=== PATIENT | female | born 1950 | race Hispanic/Latino ===

== ENCOUNTER 2017-05-06 07:17 | Emergency (ER) | payer OTHER ==
[2017-05-06 07:42] VITALS: RESP 18; TEMP 99; O2SAT 99; BMI 25.7
--- NOTE | 2017-05-06 07:50 | ED PDOC ---
Arrival/HPI - General Chief Complaint: Upper Extremity Problem/Injury Time Seen by Provider: 05/06/17 07:41 Historian: Patient - History of Present Illness Narrative History of Present Illness (Text): 05/06/17 07:46 Delores Washington is a 66 year old female, with no significant past medical history, who presents to the emergency department complaining of left wrist pain s/p fall. Patient was walking, slipped, and put her left arm out to catch herself. Patient denies any symptoms before the fall. Patient denies any fever, LOC, dizziness, headache, chest pain, back pain, neck pain, abdominal pain, vomiting or any other complaints. Time/Duration: Prior to Arrival Symptom Onset: Sudden Activities at Onset: Light Context: Walking Past Medical History - Provider Review Nursing Documentation Reviewed: Yes - Infectious Disease Hx of Infectious Diseases: None - Reproductive Menopause: Yes - Cardiac Hx Pacemaker: No - Neurological Hx Paralysis: No - Hematological/Oncological Hx Blood Transfusions: No Hx Blood Transfusion Reaction: No - Integumentary Other/Comment: breast ca - Musculoskeletal/Rheumatological Hx Musculoskeletal Disorders: No - Psychiatric Hx Emotional Abuse: No Hx Physical Abuse: No Hx Substance Use: No - Surgical History Other/Comment: rt breast lumpectomy - Anesthesia Hx Anesthesia Reactions: No Hx Malignant Hyperthermia: No - Suicidal Assessment Feels Threatened In Home Enviroment: No Family/Social History - Physician Review Nursing Documentation Reviewed: Yes Family/Social History: Unknown Family HX Smoking Status: Unknown If Ever Smoked Hx Alcohol Use: No Hx Substance Use: No Allergies/Home Meds Allergies/Adverse Reactions: Allergies No Known Allergies Allergy (Verified 10/11/13 08:22) Home Medications: Home Meds Medication Instructions Recorded Confirmed Exemestane [Aromasin] 25 mg PO QPM 07/25/14 07/26/14 Multivitamin4 [One-A-Day] 1 tab PO DAILY 07/26/14 07/26/14 Review of Systems - Physician Review All systems were reviewed & negative as marked: Yes - Review of Systems Constitutional: Normal Eyes: Normal ENT: Normal Respiratory: Normal. absent: SOB, Cough Cardiovascular: Normal. absent: Chest Pain Gastrointestinal: Normal. absent: Abdominal Pain, Diarrhea, Nausea, Vomiting Genitourinary Female: Normal. absent: Dysuria, Frequency, Hematuria, Urine Output Changes Musculoskeletal: Other (Left wrist pain). absent: Back Pain, Neck Pain Skin: Normal. absent: Rash Neurological: Normal. absent: Headache, Dizziness Endocrine: Normal Hemo/Lymphatic: Normal Psychiatric: Normal Physical Exam Vital Signs Reviewed: Yes Vital Signs Temp Pulse Resp BP Pulse Ox 05/06/17 10:00 88 18 150/90 99 05/06/17 07:35 99 F 98 H 18 113/71 99 Temperature: Afebrile Blood Pressure: Normal Pulse: Regular Respiratory Rate: Normal Appearance: Positive for: Well-Appearing, Non-Toxic, Comfortable Pain Distress: None Mental Status: Positive for: Alert and Oriented X 3 - Systems Exam Head: Present: Atraumatic, Normocephalic Pupils: Present: PERRL Extroacular Muscles: Present: EOMI Conjunctiva: Present: Normal Mouth: Present: Moist Mucous Membranes Neck: Present: Normal Range of Motion. No: Meningeal Signs, MIDLINE TENDERNESS , JVD Respiratory/Chest: Present: Clear to Auscultation, Good Air Exchange. No: Respiratory Distress, Accessory Muscle Use Cardiovascular: Present: Regular Rate and Rhythm, Normal S1, S2. No: Murmurs Abdomen: Present: Normal Bowel Sounds. No: Tenderness, Distention, Peritoneal Signs Back: Present: Normal Inspection. No: CVA Tenderness, Midline Tenderness, Paraspinal Tenderness Upper Extremity: Present: Normal Inspection (mild tenderness interior aspect of left wrist), Tenderness. No: Cyanosis, Edema Lower Extremity: Present: Normal Inspection. No: Edema, CALF TENDERNESS, NORMAL PULSES Neurological: Present: GCS=15, CN II-XII Intact, Speech Normal Skin: Present: Warm, Dry, Normal Color. No: Rashes Psychiatric: Present: Alert, Oriented x 3, Normal Insight, Normal Concentration Medical Decision Making ED Course and Treatment: 05/06/17 07:54 Impression: 66 year old female presents to the ED complaining of left wrist pain s/p fall. Plan: -- Xray Lt. wrist -- Motrin -- Reassess and disposition Progress Notes: 05/06/17 09:24 Xray left wrist reviewed, shows: BONES: There is a impacted fracture of the distal left radius at the level of the distal metaphysis with dorsal angulation of the major distal fracture fragment compatible with a Colles fracture. JOINTS: No subluxation or dislocation degenerative changes seen of the carpometacarpal articulations as well as the radiocarpal joints. Limited local soft tissue edema is identified. SOFT TISSUES: As above. OTHER FINDINGS: None. IMPRESSION: Colles fracture distal left radius. No dislocation. - RAD Interpretation Radiology Orders: 05/06/17 07:42 WRIST, LEFT 3 VIEWS [RAD] Stat - Medication Orders Current Medication Orders: Discontinued Medications Ibuprofen (Motrin Tab) 600 mg PO STAT STA Stop: 05/06/17 07:43 Last Admin: 05/06/17 08:17 Dose: 600 mg [facility] Pain/Vitals Document 05/06/17 08:17 SZA (Rec: 05/06/17 08:17 [id number]) Pain Reassessment Is This A Pain ReAssessment? No Sleep Is patient sleeping during reassessment? No Presence of Pain Presence of Pain Yes Pain Scale Used Pain Scale Used Numeric Location Description Intermittent Intensity 7 Scale Used Numeric Re-Assess: [facility] Pain/Vitals Document 05/06/17 09:17 SZA (Rec: 05/06/17 10:36 [id number]) Pain Reassessment Is This A Pain ReAssessment? Yes Sleep Is patient sleeping during reassessment? No Presence of Pain Presence of Pain Yes Location Intensity 2 Scale Used Numeric - Scribe Statement The provider has reviewed the documentation as recorded by the Scribjakob Monaco All medical record entries made by the Scribe were at my direction and personally dictated by me. I have reviewed the chart and agree that the record accurately reflects my personal performance of the history, physical exam, medical decision making, and the department course for this patient. I have also personally directed, reviewed, and agree with the discharge instructions and disposition. Disposition/Present on Arrival - Present on Arrival Any Indicators Present on Arrival: No History of DVT/PE: No History of Uncontrolled Diabetes: No Urinary Catheter: No History of Decub. Ulcer: No History Surgical Site Infection Following: None - Disposition Have Diagnosis and Disposition been Completed?: Yes Diagnosis: Colles' fracture Disposition: HOME/ ROUTINE Disposition Time: 10:15 Condition: IMPROVED Discharge Instructions (ExitCare): Colles' Fracture (DC) Additional Instructions: Thank you for letting us take care of you today. The emergency medical care you received today was directed at your acute symptoms. If you were prescribed any medication, please fill it and take as directed. It may take several days for your symptoms to resolve. Return to the Emergency Department if your symptoms worsen, do not improve, or if you have any other problems. Please contact your doctor or call one of the physicians/clinics you have been referred to that are listed on the Patient Visit Information form that is included in your discharge packet. Bring any paperwork you were given at discharge with you along with any medications you are taking to your follow up visit. Our treatment cannot replace ongoing medical care by a primary care provider (PCP) outside of the emergency department. Thank you for allowing the [facility] team to be part of your care today. Follow up with the orthopedic doctor as directed. Keep the splint clean and dry at all times. Prescriptions: Ibuprofen [Motrin] 600 mg PO Q6 PRN #20 tab PRN Reason: Pain, Moderate (4-7) Referrals: Nick Anderson MD [Primary Care Provider] - Follow up with primary Prateek Garcia DO [Staff Provider] - Follow up with primary Forms: [facility] (Armenian), WORK NOTE
--- NOTE | 2017-05-06 09:22 | RAD ---
PROCEDURE: Left Wrist Radiographs. HISTORY: s/p fall - r/o fx COMPARISON: None. FINDINGS: BONES: There is a impacted fracture of the distal left radius at the level of the distal metaphysis with dorsal angulation of the major distal fracture fragment compatible with a Colles fracture. JOINTS: No subluxation or dislocation degenerative changes seen of the carpometacarpal articulations as well as the radiocarpal joints. Limited local soft tissue edema is identified. SOFT TISSUES: As above. OTHER FINDINGS: None. IMPRESSION: Colles fracture distal left radius. No dislocation.
[2017-05-06 10:39] VITALS: BP 150/90; PULSE 88
--- NOTE | 2017-05-07 08:33 | ED ---
ORTHOPEDIC CONSULTATION IN THE EMERGENCY ROOM HISTORY OF PRESENT ILLNESS: This 66-year-old female slipped and fell, coming to work at the hospital, and sustained a fracture of her non-dominant left distal radius, minimally displaced and [id number] by x-ray. With this in mind, we are planning not to do surgery. We will put her in a short arm, well-molded cast, 5-week rest, gave her strict instructions for elevation. I will see her in the office in 10 days. Put her in a left arm sling and not to work until pain is tolerable. FINAL DIAGNOSIS: Left distal radius fracture, nonarticular and not involving the ulnar styloid. Put her in for short-arm cast for 5 or 6 weeks and put her in a left wrist splint until followup in the office. Prateek Garcia DO
== END 2017-05-06 10:41 | disposition home or self-care (01) ==
LOC: ED 07:17
DX: S52.532A Colles' fracture of left radius, initial encounter for closed fracture (principal); W01.0XXA Fall on same level from slipping, tripping and stumbling without subsequent striking against object, initial encounter; Y93.01 Activity, walking, marching and hiking; Y92.9 Unspecified place or not applicable